=== PATIENT | male | born 1950 | race Caucasian/White ===

== ENCOUNTER 2016-12-11 12:52 | Inpatient (IN) | payer MEDICARE ==
[~2016-12-11] VITALS: Ht 182.9 cm; Wt 122.5 kg
[2016-12-11] MEDS ORDERED: MAGNESIUM HYDROXIDE 30 ML UDC PO PRN (14:00)
[2016-12-11] MEDS ORDERED: ACETAMINOPHEN 325 MG TABLET PO PRN (14:00)
[2016-12-11] MEDS ORDERED: TEMAZEPAM 7.5 MG CAPSULE PO PRN (14:00)
[2016-12-11] MEDS ORDERED: clonazePAM 0.5 MG TABLET PO PRN (14:00)
[2016-12-11 14:16] VITALS: BP 121/56
[2016-12-11 16:17] VITALS: BP 135/80
[2016-12-11 19:58] VITALS: BP 157/71
[2016-12-11 20:00] VITALS: BP 157/71
[2016-12-12 08:00] VITALS: BP 139/77
[2016-12-12 08:17] LABS: ALBUMIN 3.2 g/dL (3.4-5.0); BILIRUBIN,TOTAL 0.2 mg/dL (0.2-1.0); CREATININE 0.8 mg/dL (0.6-1.3); POTASSIUM 4.4 mmol/L (3.5-5.1)
[2016-12-12 08:27] LABS: CHOLESTEROL 149 mg/dL (<200); HDL CHOLESTEROL 40 mg/dL (40-60); LDL 91 mg/dL (0-99); TRIGLYCERIDES 87 mg/dL (30-150)
[2016-12-12] MEDS: risperiDONE 1 MG TABLET PO SCH ×2 (10:00→16:33)
[2016-12-12 15:51] VITALS: BP 133/65
[2016-12-12 20:00] VITALS: BP 158/88
[2016-12-12] MEDS: MAG HYDROX/AL HYDROX/SIMETH 30 ML UDC PO PRN (23:12)
[2016-12-13 02:00] VITALS: BP 158/88
[2016-12-13 08:00] VITALS: BP 152/80
[2016-12-13] MEDS: risperiDONE 1 MG TABLET PO SCH ×2 (08:35→16:24)
[2016-12-13 15:48] VITALS: BP 140/79
[2016-12-13] MEDS: diphenhydrAMINE HCL/ZINC ACET CREAM 28.3 GM TUBE TP PRN (16:54)
[2016-12-13 20:00] VITALS: BP 137/63
[2016-12-14 08:00] VITALS: BP 148/69
[2016-12-14] MEDS: diphenhydrAMINE HCL/ZINC ACET CREAM 28.3 GM TUBE TP PRN (08:21)
[2016-12-14] MEDS: risperiDONE 1 MG TABLET PO SCH ×2 (08:21→17:00)
[2016-12-14 16:00] VITALS: BP 139/95
[2016-12-14 20:00] VITALS: BP 152/74
[2016-12-14] MEDS: MAG HYDROX/AL HYDROX/SIMETH 30 ML UDC PO PRN (20:51)
[2016-12-15] MEDS: MAG HYDROX/AL HYDROX/SIMETH 30 ML UDC PO PRN (01:04)
[2016-12-15] MEDS ORDERED: OLANZAPINE 10 MG VIAL IM ONE ×2 (05:36→06:00)
[2016-12-15] MEDS ORDERED: LORAZEPAM INJ 2 MG/ML VIAL ONE (05:38)
[2016-12-15] MEDS ORDERED: LORAZEPAM INJ 2 MG/ML VIAL IM ONE (06:00)
[2016-12-15 08:06] VITALS: BP 136/82
[2016-12-15] MEDS: risperiDONE 1 MG TABLET PO SCH ×2 (09:00→17:00)
[2016-12-15 16:00] VITALS: BP 135/83
[2016-12-15 20:07] VITALS: BP 113/56
[2016-12-16] MEDS: MAG HYDROX/AL HYDROX/SIMETH 30 ML UDC PO PRN (05:03)
[2016-12-16 08:00] VITALS: BP 148/81
[2016-12-16] MEDS: risperiDONE 1 MG TABLET PO SCH ×2 (08:56→16:43)
[2016-12-16] MEDS: AMLODIPINE BESYLATE 5 MG TABLET PO SCH (08:56)
[2016-12-16 16:00] VITALS: BP 150/82
[2016-12-16 22:17] VITALS: BP 123/65
[2016-12-17] MEDS: MAG HYDROX/AL HYDROX/SIMETH 30 ML UDC PO PRN (00:35)
[2016-12-17 08:00] VITALS: BP 134/62
[2016-12-17 08:12] VITALS: BP 134/62
[2016-12-17] MEDS: AMLODIPINE BESYLATE 5 MG TABLET PO SCH (08:12)
[2016-12-17] MEDS: risperiDONE 1 MG TABLET PO SCH (08:13)
[2016-12-17] MEDS ORDERED: CEPHALEXIN MONOHYDRATE 500 MG CAPSULE PO SCH (09:00)
[2016-12-17] MEDS: diphenhydrAMINE HCL/ZINC ACET CREAM 28.3 GM TUBE TP PRN (13:15)
== END 2016-12-17 15:30 | disposition home or self-care (01) | DRG 885 ==
LOC: GPS 12:52
PROVIDERS: ADMIT Psychiatry & Neurology Psychiatry; ATTEND Psychiatry & Neurology Psychiatry
DX: F31.64 Bipolar disorder, current episode mixed, severe, with psychotic features (principal); J44.9 Chronic obstructive pulmonary disease, unspecified; I10 Essential (primary) hypertension; F29 Unspecified psychosis not due to a substance or known physiological condition; Z73.6 Limitation of activities due to disability; F17.200 Nicotine dependence, unspecified, uncomplicated; F41.9 Anxiety disorder, unspecified; L53.9 Erythematous condition, unspecified
CPT/HCPCS: 36415; 70450-TC; 71100-TC; 80053-TC; 80061-TC; 87081-TC; J2060; J3490; Z7610